=== PATIENT | female | born 1980 | race Caucasian/White ===

== ENCOUNTER 2018-06-13 06:24 | Day surgery (SDC) | payer OTHER ==
[2018-06-13] MEDS ORDERED: CEFAZOLIN 1 GM INJ ×2 (07:00→08:18)
[2018-06-13 07:41] LABS: ADD MAN DIFF? NO
[2018-06-13 07:42] LABS: BASOPHILS % 0.5 % (0.0-2.0); EOSINOPHILS # 0.4 10^3/ul (0.0-0.5); EOSINOPHILS % 5.3 % (0.0-7.0); HEMATOCRIT 34.6 % (37.0-47.0); HEMOGLOBIN 11.5 g/dl (12.0-16.0); LYMPHOCYTES % 30.5 % (15.0-51.0); MEAN CORPUSCULAR HGB CONC 33.2 g/dl (32.0-37.0); MEAN CORPUSCULAR VOLUME 90.3 fl (82.0-101.0); MEAN PLATELET VOLUME 11.9 fl (7.4-10.4); MONOCYTE # 0.4 10^3/ul (0.3-0.9); MONOCYTES % 5.7 % (0.0-11.0); NEUTROPHIL # 3.8 10^3/ul (1.6-7.5); NEUTROPHILS % 57.5 % (39.0-77.0); PLATELET COUNT 209 10^3/UL (140-415); RED BLOOD COUNT 3.83 10^6/ul (4.20-5.40)
[2018-06-13 07:42] LABS: WHITE BLOOD COUNT 6.6 10^3/ul (4.8-10.8)
[2018-06-13] MEDS ORDERED: LIDOCAINE 1%/EPI (1:100,000) (MDV) 20 ML (07:59)
[2018-06-13] MEDS ORDERED: PROPOFOL 20 ML (08:15)
[2018-06-13] MEDS ORDERED: METOCLOPRAMIDE 10 MG INJ (08:15)
[2018-06-13] MEDS ORDERED: ONDANSETRON 4 MG INJ (08:15)
[2018-06-13] MEDS ORDERED: ROCURONIUM 50 MG INJ (08:15)
[2018-06-13] MEDS ORDERED: MIDAZOLAM 1 MG/ML 2 ML INJ (08:15)
[2018-06-13] MEDS ORDERED: DEXAMETHASONE 4 MG/ML 5 ML INJ (08:18)
[2018-06-13] MEDS ORDERED: HYDROmorphONE 1 MG/5 ML IV SYRINGE IV (09:00)
[2018-06-13] MEDS ORDERED: ALBUTEROL 0.083% (NEB) 2.5 MG/3 ML AMP HHN (09:00)
[2018-06-13] MEDS ORDERED: KETOROLAC 30 MG INJ IV (09:00)
[2018-06-13] MEDS ORDERED: OXYCODONE/ACETAMINOPHEN (5/325) TAB PO ×2 (09:00)
[2018-06-13] MEDS ORDERED: IPRATROPIUM (NEB) 0.5 MG/2.5 ML AMP HHN (09:00)
[2018-06-13] MEDS ORDERED: DIPHENHYDRAMINE 50 MG INJ IV (09:00)
[2018-06-13] MEDS ORDERED: HYDROmorphONE 2 MG/ML SYG (09:25)
[2018-06-13] MEDS ORDERED: KETOROLAC 30 MG INJ (09:26)
[2018-06-13] MEDS ORDERED: GLYCOPYRROLATE 0.4 MG INJ (09:30)
[2018-06-13] MEDS ORDERED: NEOSTIGMINE 3 MG/3 ML SYRINGE (09:30)
[2018-06-13] MEDS: MEPERIDINE 25 MG INJ IV (09:59)
[2018-06-13] MEDS: ONDANSETRON 4 MG INJ IV (10:00)
[2018-06-13] MEDS: HYDROmorphONE 1 MG/5 ML IV SYRINGE IV ×3 (10:12→10:21)
== END 2018-06-13 11:45 | disposition home or self-care (01) ==
LOC: SDS 06:24
DX: N83.201 Unspecified ovarian cyst, right side (principal)
CPT/HCPCS: 58662; 85025; 88305

== ENCOUNTER 2018-10-25 11:52 | Emergency (ER) | payer OTHER ==
[2018-10-25 13:29] LABS: ADD UMIC NO; UR ASCORBIC ACID NEGATIVE (NEGATIVE); UR BILIRUBIN (Dip) NEGATIVE (NEGATIVE); UR BLOOD (Dip) NEGATIVE (NEGATIVE); UR CLARITY SLIGHTLY CLOUDY (CLEAR); UR COLOR YELLOW (YELLOW); UR GLUCOSE (Dip) NEGATIVE (NEGATIVE); UR KETONES (Dip) NEGATIVE (NEGATIVE); UR LEUKOCYTE ESTERASE (Dip) NEGATIVE Leu/ul (NEGATIVE); UR NITRITE (Dip) NEGATIVE (NEGATIVE); UR RBC 0 /HPF (0-5); UR SPECIFIC GRAVITY (Dip) 1.006 (1.003-1.030); UR SQUAMOUS EPITHELIAL CELL MODERATE /HPF (FEW); UR TOTAL PROTEIN (Dip) NEGATIVE (NEGATIVE); UR UROBILINOGEN (Dip) NEGATIVE (NEGATIVE); UR WBC 5 /HPF (0-5)
== END 2018-10-25 15:31 | disposition home or self-care (01) ==
LOC: FTE 15:31
DX: O02.1 Missed abortion (principal)
CPT/HCPCS: 36415; 76801; 76817; 81001; 81003; 84702; 99284-25